=== PATIENT | female | born 1995 | race Caucasian/White ===

== ENCOUNTER → 2017-06-20 13:40 | Inpatient (IN) | payer MEDICAID, OTHER ==
[2017-06-18 06:45] VITALS: BMI 25.8
[2017-06-18 08:50] LABS: Hematocrit 33.6 % (36.0-47.0); Mean Platelet Volume 8.3 fL (7.4-10.4); Red Blood Cell (RBC) Count 3.84 mill/uL (4.00-5.20); White Blood Cell (WBC) Count 11.1 thou/uL (4.8-10.8)
[2017-06-18] MEDS: Lactated Ringer's 1,000 ML IV SCH ×2 (09:13→23:27)
[2017-06-18 12:19] LABS: Amphetamine Not Detected (NotDetected); Methadone Not Detected (NotDetected); Methamphetamine Not Detected (NotDetected)
--- NOTE | 2017-06-18 13:38 | PDOC.LDPN ---
Labor & Delivery Progress Note - Subjective Subjective: painful contractions - Objective Vital signs reviewed and normal: yes General: NAD Uterine fundus: non tender SVE: @[address] Saleh Dilation: 3 Effacement: 75% Station: -2 FHT: category 1, variability present [place] contractions every: 2-3 min - Assessment (1) Term Code(s): Z34.80 - ENCOUNTER FOR SUPRVSN OF NORMAL , UNSP TRIMESTER Current Visit: Yes Status: Acute Comment: @ 40.5 WGA here for induction of labor s/p one dose of cytotec -pitocin started for labor induction -LR @ 125 -stadol for pain control Recently treated for chlamydia -check GC/chlamydia (2) Group B streptococcal carriage complicating Code(s): O99.820 - STREPTOCOCCUS B CARRIER STATE COMPLICATING Current Visit: Yes Status: Acute Comment: Patient GBS positive -Penicillin (currently received one dose, will continue) Plan: pitocin for augmentation
[2017-06-18] MEDS: Penicillin G 2.5 MILL.units 2.5 MILL.UNITS in Premix Bag 1 BAG IVPB SCH ×3 (13:39→23:27)
--- NOTE | 2017-06-18 16:00 | PDOC.LDPN ---
Labor & Delivery Progress Note - Subjective Subjective: comfortable - Objective Vital signs reviewed and normal: yes General: NAD Uterine fundus: non tender SVE: @ 1430 Dilation: 4 Effacement: 75% Station: -1 FHT: category 1, early decelerations, variability present [place] contractions every: 3 min Procedures: SROM - clear fluid - Assessment (1) Term Code(s): Z34.80 - ENCOUNTER FOR SUPRVSN OF NORMAL , UNSP TRIMESTER Current Visit: Yes Status: Acute Comment: @ 40.5 WGA here for induction of labor s/p one dose of cytotec SROM @ 1430 -pitocin for labor induction -LR @ 125 -epidural for pain control Recently treated for chlamydia -check GC/chlamydia (2) Group B streptococcal carriage complicating Code(s): O99.820 - STREPTOCOCCUS B CARRIER STATE COMPLICATING Current Visit: Yes Status: Acute Comment: Patient GBS positive -Penicillin - currently on second dose Plan: continue plan of care, pitocin for augmentation <Mouna Saleh - Last Filed: 06/18/17 15:58> Attending Addendum - Attending Addendum I personally evaluated the patient and discussed the management with Dr. Saleh I agree with the History, Examination, Assessment and Plan documented above with any addition or exceptions noted below. <César Xavier - Last Filed: 06/19/17 07:00>
--- NOTE | 2017-06-18 17:05 | PDOC.LDPN ---
Labor & Delivery Progress Note - Subjective Subjective: comfortable - Objective Vital signs reviewed and normal: yes General: NAD, resting Uterine fundus: non tender Dilation: 6 Effacement: 75% Station: -1 FHT: category 1, early decelerations, variability present [place] contractions every: 3 min - Assessment (1) Term Code(s): Z34.80 - ENCOUNTER FOR SUPRVSN OF NORMAL , UNSP TRIMESTER Current Visit: Yes Status: Acute Comment: @ 40.5 WGA here for induction of labor s/p one dose of cytotec SROM @ 1430 -pitocin -LR @ 125 -epidural for pain control -cervical checks q2h Recently treated for chlamydia -check GC/chlamydia (2) Group B streptococcal carriage complicating Code(s): O99.820 - STREPTOCOCCUS B CARRIER STATE COMPLICATING Current Visit: Yes Status: Acute Comment: Patient GBS positive -Penicillin - currently on second dose Plan: continue plan of care, pitocin for augmentation <Mouna Saleh - Last Filed: 06/18/17 17:04> Attending Addendum - Attending Addendum I personally evaluated the patient and discussed the management with Dr. Saleh I agree with the History, Examination, Assessment and Plan documented above with any addition or exceptions noted below. <César Xavier - Last Filed: 06/19/17 07:01>
--- NOTE | 2017-06-18 19:21 | PDOC.OPDEL ---
OB Operative/Delivery Note Delivery Dr/Surgeon: Dr. Mouna Saleh and Dr. Brayan Grewal with attending Dr. Devora Fine Pre-Delivery Diagnosis: elective induction Procedure/Post Delivery Dx: spontaneous vaginal delivery Weeks gestation: 40 (40.5 WGA) Anesthesia: epidural - Findings A Sex: male - 5 min: 9 - 10 min: 9 - Additional Findings/Plan Placenta delivered: spontaneous Repaired Obstetrical Laceration: none Estimated blood loss: 200 mL Post delivery plan: routine recovery <Mouna Saleh - Last Filed: 06/18/17 19:20> Attending Addendum - Attending Addendum I personally evaluated the patient and discussed the management with Dr. Saleh on 06/18/17. I agree with the History, Examination, Assessment and Plan documented above with any addition or exceptions noted below. I was present for the entire procedure and agree with documentation as above. <Devora Fine - Last Filed: 06/18/17 22:37>
[2017-06-18] MEDS: HYDROcodone/Acetaminophen 5/325 mg Tablet PO PRN ×2 (19:44→21:11)
[2017-06-18] MEDS: Docusate (Surfak) 240 MG CAP PO SCH (22:47)
[2017-06-19] MEDS: HYDROcodone/Acetaminophen 5/325 mg Tablet PO PRN ×4 (01:24→20:37)
[2017-06-19] MEDS: Penicillin G 2.5 MILL.units 2.5 MILL.UNITS in Premix Bag 1 BAG IVPB SCH ×2 (01:27→05:19)
[2017-06-19] MEDS: Lactated Ringer's 1,000 ML IV SCH ×3 (05:19→17:08)
--- NOTE | 2017-06-19 07:14 | PDOC.PP ---
Post Progress Note Post Day #: 1 -: breast feeding well. No concerns PO intake tolerated: yes Flatus: yes Ambulation: yes Vital Signs (12 hours) Temp Pulse Resp BP Pulse Ox 06/19/17 05:00 97.6 F 60 18 116/56 L 06/18/17 23:40 98.3 F 82 20 102/58 L 06/18/17 21:45 98.0 F 73 18 06/18/17 21:40 98.0 F 73 18 120/56 L 94 L Weight Weight 72.575 kg - Physical Examination General: NAD Cardiovascular: no m/r/g, RRR Abdominal: + bowel sounds, lochia, no distention, appropriately TTP Fundus firm & at: umbilicus Extremities: negative homans (B) Skin: no rash Neurological: no gross focal deficits Psychiatric: normal affect Result Diagrams: 06/18/17 07:09 Additional Labs: Post Labs Hep Bs Antigen Non-Reactive S/CO (NonReactive) 06/18/17 07:09 (1) Term Code(s): Z34.80 - ENCOUNTER FOR SUPRVSN OF NORMAL , UNSP TRIMESTER Status: Acute Comment: delivered at 40.5 wk via . No lacerations. Pain moderately controlled. States she received rash from ibuprofen as child. Is willing to try toradol. will give 1 time dose IV 15 mg to see if she has reaction. continue norco. Attempting to breast feed and doing well. outbound sales consultant scheduled to see. plan for d/c tomorrow. (2) Chlamydia contact, treated Code(s): Z20.2 - CONTACT W AND EXPOSURE TO INFECT W A SEXL MODE OF TRANSMISS Status: Acute Comment: started treatment 2 days prior to delivery. will monitor baby for 48 hours and give precautions. (3) Group B streptococcal carriage complicating Code(s): O99.820 - STREPTOCOCCUS B CARRIER STATE COMPLICATING Status : Acute Comment: adequately treated. <Brayan Grewal W - Last Filed: 06/19/17 07:11> Vital Signs (12 hours) Temp Pulse Resp BP 06/19/17 12:34 98.0 F 71 20 112/58 L 06/19/17 11:49 98.7 F 72 22 H 06/19/17 08:20 97.5 F L 80 14 112/71 06/19/17 05:00 97.6 F 60 18 116/56 L Weight Weight 72.575 kg Result Diagrams: 06/18/17 07:09 Additional Labs: Post Labs Hep Bs Antigen Non-Reactive S/CO (NonReactive) 06/18/17 07:09 - Assessment/Plan Seen and examined with Dr. Saleh and kumari portions of the H&P repeated. I agree with her assessment and plan with the following addendum. Doing well this AM, c/o radicular leg pain. Motor 5/5, DTRs 2/4 in patellar and ankle bilaterally. Will ask anesthesia to evaluate. <César Xavier - Last Filed: 06/19/17 15:20>
[2017-06-19] MEDS: Prenatal Vitamin 1 TAB PO SCH (08:21)
[2017-06-19] MEDS: Docusate (Surfak) 240 MG CAP PO SCH ×2 (08:21→20:37)
[2017-06-19] MEDS: Ferrous Sulfate 325 MG TAB PO SCH ×2 (08:25→17:09)
[2017-06-20] MEDS: HYDROcodone/Acetaminophen 5/325 mg Tablet PO PRN (05:57)
[2017-06-20] MEDS: Lactated Ringer's 1,000 ML IV SCH ×2 (06:02→08:56)
[2017-06-20 06:24] VITALS: TEMP 98.4
--- NOTE | 2017-06-20 07:37 | PDOC.PP ---
Post Progress Note Post Day #: 2 -: well. No concerns. pain controlled PO intake tolerated: yes Flatus: yes Ambulation: yes Vital Signs (12 hours) Temp Pulse Resp BP 06/20/17 04:00 98.4 F 65 17 110/58 L 06/20/17 00:00 97.5 F L 67 18 06/19/17 20:00 97.5 F L 67 18 103/50 L Weight Weight 72.575 kg - Physical Examination General: NAD Cardiovascular: no m/r/g, RRR Respiratory: clear to ausculation bilateral Abdominal: + bowel sounds, lochia, no distention, appropriately TTP Fundus firm & at: 2 cm below umbilicus Extremities: negative homans (B) Skin: no rash Neurological: no gross focal deficits Psychiatric: normal affect Result Diagrams: 06/18/17 07:09 Additional Labs: Post Labs Hep Bs Antigen Non-Reactive S/CO (NonReactive) 06/18/17 07:09 (1) Term Code(s): Z34.80 - ENCOUNTER FOR SUPRVSN OF NORMAL , UNSP TRIMESTER Status: Acute Comment: delivered at 40.5 wk via . No lacerations. Pain moderately controlled. States she received rash from ibuprofen as child. Toradol helped. will give toradol 30 mg IV x1 dose then d/c with PO toradol. D/ c today (2) Chlamydia contact, treated Code(s): Z20.2 - CONTACT W AND EXPOSURE TO INFECT W A SEXL MODE OF TRANSMISS Status: Acute Comment: started treatment 2 days prior to delivery. will monitor baby for approximately 48 hours and give precautions. (3) Group B streptococcal carriage complicating Code(s): O99.820 - STREPTOCOCCUS B CARRIER STATE COMPLICATING Status : Acute Comment: adequately treated. <Brayan Grewal W - Last Filed: 06/20/17 07:35> Vital Signs (12 hours) Temp Pulse Resp BP 06/20/17 04:00 98.4 F 65 17 110/58 L 06/20/17 00:00 97.5 F L 67 18 06/19/17 20:00 97.5 F L 67 18 103/50 L Weight Weight 72.575 kg Result Diagrams: 06/18/17 07:09 Additional Labs: Post Labs Hep Bs Antigen Non-Reactive S/CO (NonReactive) 06/18/17 07:09 <Ryland Zhang - Last Filed: 06/20/17 07:38> Attending Addendum - Attending Addendum I personally evaluated the patient and discussed the management with Dr. Grewal. I agree with the History, Examination, Assessment and Plan documented above with any addition or exceptions noted below. <Ryland Zhang - Last Filed: 06/20/17 07:38>
[2017-06-20] MEDS: Docusate (Surfak) 240 MG CAP PO SCH (08:55)
[2017-06-20] MEDS: Prenatal Vitamin 1 TAB PO SCH (08:55)
[2017-06-20] MEDS: Ferrous Sulfate 325 MG TAB PO SCH (08:57)
[2017-06-20 09:40] VITALS: BP 114/80
[~2017-06-20 13:40] MED LIST: Acetaminophen 325 MG TAB PO PRN; Acetaminophen 500 MG TAB PO PRN; Adacel (T-DAP) 0.5 ML VIAL IM ONE; Benzocaine/Menthol 20-0.5% 60 ML CAN TOP PRN; Bisacodyl 10 MG SUPP PR PRN; CADD ONE; Communication Order-Pharmacy FS SCH; Eucerin (Mineral Oil/Petrolatum,White) 30 gm Jar TOP PRN; FENTANYL ONE; Fentanyl 100 MCG/2 ML VIAL ONE; Fentanyl 4 mcg/Marc 0.1% Cadd 100 ML ONE; Fentanyl 4mcg/Marcaine 0.1% Cassette 100 ML EPIDURAL SCH; Ketorolac Tromethamine 30 MG/ML VIAL IM SCH; Ketorolac Tromethamine 30 MG/ML VIAL IVP SCH; LR / Pitocin 40 units/1000 ml 1,000 ML IV PRN; LR / Pitocin 40 units/1000 ml 1,000 ML IV SCH; LR 500 ML/Oxytocin 10 units 500 ML IV SCH; LR 500 ML/Oxytocin 10 units 500 ML ONE; Lactated Ringer's 500 ML IV PRN; Lanolin Ointment 7 GM TUBE TOP PRN; Lidocaine 1% (PF) 30 ML VIAL SC PRN; Lidocaine 2% PF 10 ML AMP (For Epidural Use) ONE; Milk Of Magnesia 30 ML UDCUP PO PRN; Misoprostol 100 MCG TAB VAG SCH; Naloxone HCl 0.4 mg/ml Vial IVP PRN; Ondansetron HCl/PF 4 MG/2 ML Vial IVP PRN; Ondansetron ODT 4 MG TAB PO PRN; Penicillin G Potassium 5 MILL.UNITS in Sodium Chloride 0.9% 100 ML IVPB SCH; Preparation H Ointment 28 GM TUBE PR PRN; Promethazine HCl 25 MG/ML VIAL IM PRN; [UNRECOGNIZED DRUG - OTHER] ONE; diphenhydrAMINE HCl 25 MG CAP PO PRN; diphenhydrAMINE HCl 50 MG/ML 1 ML VIAL IVP PRN; ePHEDrine/0.9% NaCl/PF SYRINGE 50 mg/10 ml SLOW IVP PRN
== END | disposition home or self-care (01) | DRG 774 ==
LOC: EDSTATUS 09-29 12:45 → L&D 06-18 06:16 → 3SW 06-18 21:40
PROVIDERS: ADMIT Family Medicine; ATTEND Family Medicine
PROC: 10E0XZZ Delivery of Products of Conception, External Approach (ICD-10-PCS; principal; 2017-06-18)
PROC: 3E033VJ Introduction of Other Hormone into Peripheral Vein, Percutaneous Approach (ICD-10-PCS; 2017-06-18)
PROC: 3E0P7GC Introduction of Other Therapeutic Substance into Female Reproductive, Via Natural or Artificial Opening (ICD-10-PCS; 2017-06-18)
PROC: 4A0HXCZ Measurement of Products of Conception, Cardiac Rate, External Approach (ICD-10-PCS; 2017-06-18)
DX: O98.82 Other maternal infectious and parasitic diseases complicating childbirth (principal); D64.9 Anemia, unspecified; O99.824 Streptococcus B carrier state complicating childbirth; O69.81X1 Labor and delivery complicated by cord around neck, without compression, fetus 1; O99.02 Anemia complicating childbirth; O76 Abnormality in fetal heart rate and rhythm complicating labor and delivery; Z37.0 Single live birth; Z3A.40 40 weeks gestation of pregnancy
CPT/HCPCS: 80306; 85027; 86780; 87340; 87389; 87491; 87591; J0595; J1885; J2001; J2540; J3010; J7050; J7120; Q0162

== ENCOUNTER 2018-09-18 20:04 | Emergency (ER) | payer OTHER, SELFPAY | END 2018-09-18 21:30 | disposition home or self-care (01) | LOC: ERS 20:04 | DX: S31.41XA Laceration without foreign body of vagina and vulva, initial encounter (principal); F31.9 Bipolar disorder, unspecified; W26.9XXA Contact with unspecified sharp object(s), initial encounter | CPT/HCPCS: 12001 ==

== ENCOUNTER 2018-10-12 11:54 | Emergency (ER) | payer SELFPAY ==
[2018-10-12 12:37] LABS: Bilirubin Small (Negative); Blood, Urine Negative (Negative); Clarity Slightly Cloudy (Clear); Glucose, Urine (Dipstick) Negative (Negative); Leukocyte Trace (Negative); Nitrite Negative (Negative); Pregnancy Test - Urine (BHCG) Negative (Negative); Protein, Urine (Dipstick) Negative (Neg-Trace)
[2018-10-12 12:38] LABS: Pregu Control Background? CLEAR/WHITE (CLR/WHITE); Pregu Control Bar Appear? YES (CONTROL BAR)
[2018-10-12 12:42] LABS: RBC/HPF 0-3 HPF (0-3)
[2018-10-12 12:43] LABS: Bacteria/HPF 2+ HPF (None Seen); Hyaline Casts/LPF 0-3 HYALINE CAST LPF (0-3 Hyaline)
== END 2018-10-12 12:56 | disposition home or self-care (01) ==
LOC: SCSER 11:54
DX: B00.1 Herpesviral vesicular dermatitis (principal); F31.9 Bipolar disorder, unspecified; F17.290 Nicotine dependence, other tobacco product, uncomplicated
CPT/HCPCS: 81003; 81015; 81025; 99282

== ENCOUNTER 2018-10-30 18:36 | Emergency (ER) | payer SELFPAY ==
[2018-10-30] MEDS ORDERED: Acetaminophen 500 MG TAB ONE (19:24)
== END 2018-10-30 19:28 | disposition home or self-care (01) ==
LOC: ERS 18:36
DX: J11.1 Influenza due to unidentified influenza virus with other respiratory manifestations (principal); F31.9 Bipolar disorder, unspecified; F17.290 Nicotine dependence, other tobacco product, uncomplicated
CPT/HCPCS: 87804; 99283

== ENCOUNTER 2019-01-13 06:40 | Emergency (ER) | payer SELFPAY ==
--- NOTE | 2019-01-13 08:07 | RAD ---
LEFT SHOULDER 3 VIEWS: HISTORY: Left shoulder pain. FINDINGS: Acromioclavicular and glenohumeral alignment are maintained. No acute fracture or dislocation. IMPRESSION: No acute osseous abnormalities are demonstrated. POS: MYRIAM
== END 2019-01-13 08:22 | disposition home or self-care (01) ==
LOC: ERS 06:40
DX: R59.0 Localized enlarged lymph nodes (principal); M79.602 Pain in left arm; F31.9 Bipolar disorder, unspecified; F17.290 Nicotine dependence, other tobacco product, uncomplicated

== ENCOUNTER 2020-02-23 08:03 | Emergency (ER) | payer SELFPAY, OTHER ==
[2020-02-23] MEDS ORDERED: Ondansetron ODT 4 MG TAB ONE (08:21)
[2020-02-23] MEDS ORDERED: Acetaminophen 500 MG TAB ONE (08:28)
[2020-02-23 18:19] LABS: SARS-CoV-2 MS2 Positive; SARS-CoV-2 N Gene Negative; SARS-CoV-2 S Gene Negative; SARS-CoV-2 orf1ab Negative
== END 2020-02-23 10:25 | disposition home or self-care (01) ==
LOC: ERS 08:03
DX: J02.9 Acute pharyngitis, unspecified (principal); Z20.828 Contact with and (suspected) exposure to other viral communicable diseases; F17.290 Nicotine dependence, other tobacco product, uncomplicated
CPT/HCPCS: 87081; 87430; 87635; 99283; Q0162; U0003

== ENCOUNTER 2020-06-16 11:09 | Emergency (ER) | payer SELFPAY ==
[2020-06-16] MEDS ORDERED: predniSONE 20 MG TAB ONE (12:28)
== END 2020-06-16 12:40 | disposition home or self-care (01) ==
LOC: ERS 11:09
DX: G51.0 Bell's palsy (principal); F17.290 Nicotine dependence, other tobacco product, uncomplicated
CPT/HCPCS: 99283; J7512